=== PATIENT | female | born 2000 | race Caucasian/White ===

== ENCOUNTER 2023-10-06 09:45 | Emergency (ER) | payer OTHER ==
[~2023-10-06] VITALS: Ht 167.6 cm; Wt 70.5 kg
[2023-10-06 09:54] VITALS: TEMP 98
[2023-10-06 10:38] LABS: BASO % 0.2 % (0.0-2.0); EOS # 0.1 K/mm3 (0.0-0.7); EOS % 1.2 % (0.0-4.0); GRAN # 3.2 K/mm3 (1.4-6.5); GRAN % 63.5 % (42.2-75.2); HEMATOCRIT 43.8 % (37.0-47.0); HEMOGLOBIN 14.7 g/dl (12.5-16.0); LYMPH # 1.4 K/mm3 (1.2-3.4); LYMPH % 28.2 % (20.0-51.0); MEAN CELL VOLUME 92 fl (80.0-100.0); MEAN CORPUSCULAR HEMOGLOBIN 31 pg (27-31); MEAN CORPUSCULAR HGB CONC 34 g/dl (33.0-37.0); MEAN PLATELET VOLUME 10.6 fl (7.4-10.4); MONO # 0.3 K/mm3 (0.1-0.6); MONO % 6.7 % (1.7-9.3); PLATELET COUNT 269 K/mm3 (130-400); RED BLOOD COUNT 4.76 M/mm3 (4.10-5.30); REDCELL DISTRIBUTION WIDTH-CV 12.2 % (11.5-14.5)
[2023-10-06 11:04] LABS: ALBUMIN 4.3 gm/dL (3.5-5.0); BILIRUBIN,TOTAL 0.7 mg/dL (0.2-1.2); CALCIUM 9.5 mg/dL (8.4-10.2); CREATININE, serum 0.76 mg/dL (0.57-1.11); POTASSIUM 3.2 mmol/L (3.5-4.5); TOTAL PROTEIN 9.1 gm/dL (6.2-8.1)
[2023-10-06 12:39] LABS: COLLECTION METHOD CLEAN CATCH; URINE APPEARANCE Clear (CLEAR/HAZY); URINE COLOR Yellow (YELLOW)
[2023-10-06 12:40] LABS: URINE BLOOD 2+ (NEGATIVE); URINE GLUCOSE Negative (NEGATIVE); URINE KETONE 3+ (NEGATIVE); URINE NITRATE Negative (NEGATIVE); URINE PROTEIN(semi-quant) TRACE (NEGATIVE); URINE UROBILINOGEN 0.2 E.U/dL (0.2-1.0); URINE WBC 0-2 /hpf (0-2)
[2023-10-06] MEDS ORDERED: ZOFRAN ODT4 MG PO (13:07)
[2023-10-06 13:30] VITALS: BP 102/60; PULSE 79
== END 2023-10-06 13:25 | disposition home or self-care (01) ==
LOC: COL.ER 09:45
PROVIDERS: Emergency Medicine
DX: R10.9 Unspecified abdominal pain (principal); R11.2 Nausea with vomiting, unspecified; R19.7 Diarrhea, unspecified; G40.B09 Juvenile myoclonic epilepsy, not intractable, without status epilepticus; Z79.899 Other long term (current) drug therapy
CPT/HCPCS: J2405; J7120

== ENCOUNTER 2024-08-20 09:19 | Emergency (ER) | payer OTHER ==
[~2024-08-20] VITALS: Ht 165.1 cm; Wt 77.3 kg
[~2024-08-20 09:19] MED LIST: ZOFRAN ODT4 MG PO
[2024-08-20 09:23] VITALS: TEMP 98.1
[2024-08-20] MEDS ORDERED: NS 1,000 ML IV ONE (10:15)
[2024-08-20 10:48] LABS: BASO % 0.3 % (0.0-2.0); EOS # 0.4 K/mm3 (0.0-0.7); EOS % 5.4 % (0.0-4.0); GRAN # 3.9 K/mm3 (1.4-6.5); GRAN % 57.7 % (42.2-75.2); HEMATOCRIT 40.5 % (37.0-47.0); HEMOGLOBIN 13.9 g/dl (12.5-16.0); LYMPH # 2.1 K/mm3 (1.2-3.4); LYMPH % 30.3 % (20.0-51.0); MEAN CELL VOLUME 92 fl (80.0-100.0); MEAN CORPUSCULAR HEMOGLOBIN 32 pg (27-31); MEAN CORPUSCULAR HGB CONC 34 g/dl (33.0-37.0); MEAN PLATELET VOLUME 10.6 fl (7.4-10.4); MONO # 0.4 K/mm3 (0.1-0.6); MONO % 6.2 % (1.7-9.3); PLATELET COUNT 291 K/mm3 (130-400); REDCELL DISTRIBUTION WIDTH-CV 12.5 % (11.5-14.5)
[2024-08-20 11:07] LABS: BILIRUBIN,TOTAL 0.6 mg/dL (0.2-1.2); CREATININE, serum 0.75 mg/dL (0.57-1.11); POTASSIUM 3.6 mEq/L (3.5-4.5); TOTAL PROTEIN 8.2 g/dl (6.2-8.1)
[2024-08-20 11:34] LABS: PH 6.5 (5.0-8.5); URINE APPEARANCE CLEAR (CLEAR/HAZY); URINE BLOOD NEGATIVE (NEGATIVE); URINE COLOR YELLOW (YELLOW); URINE GLUCOSE NEGATIVE (NEGATIVE); URINE KETONE TRACE (NEGATIVE); URINE NITRATE NEGATIVE (NEGATIVE); URINE PROTEIN(semi-quant) NEGATIVE (NEGATIVE)
[2024-08-20 11:50] LABS: COLLECTION METHOD CLEAN CATCH
[2024-08-20 13:13] VITALS: BP 112/70; PULSE 64
== END 2024-08-20 13:14 | disposition home or self-care (01) ==
LOC: COL.ER 09:19
PROVIDERS: Physician Assistant
DX: O26.891 Other specified pregnancy related conditions, first trimester (principal); R10.31 Right lower quadrant pain; R10.32 Left lower quadrant pain; O99.331 Smoking (tobacco) complicating pregnancy, first trimester; Z87.891 Personal history of nicotine dependence; Z3A.01 Less than 8 weeks gestation of pregnancy
CPT/HCPCS: J7030